=== PATIENT | female | born 1965 | race Caucasian/White ===

== ENCOUNTER → 2025-01-06 14:55 | Outpatient (CLI) | payer OTHER, SELFPAY ==
--- NOTE | 2025-01-06 15:03 | EKG_ITS ---
[facility] [address] [place] [id number] Test Date: 2025-01-06 Pat Name: Uzma Loredo Department: [facility] Room: Gender: Female Credit Review Manager: ABELARDO : 1965 Requested By: Order Number: [id number] Reading MD: Cem Carr MD Measurements Intervals [place] Rate: 76 P: 1 [place]: 166 QRS: -29 QRSD: 90 T: 13 QT: 360 QTc: 405 Interpretive Statements Normal sinus rhythm Low voltage QRS Cannot rule out Anterior infarct , age undetermined Electronically Signed On 01-07-2025 7:28:41 PST by Cem Carr MD
== END ==
LOC: RESP 15:00
PROVIDERS: PCP Physician Assistant Medical; Referring Provider Registered Nurse Obstetric, High-Risk; Visit Provider Registered Nurse Obstetric, High-Risk
DX: Z01.818 Encounter for other preprocedural examination (principal)
CPT/HCPCS: 93005